=== PATIENT | female | born 1965 | race American Indian/Alaskan Native ===

== ENCOUNTER 2016-09-03 08:04 | Day surgery (SDC) | payer MEDICAID ==
--- NOTE | 2016-09-03 09:52 | Anesthesia Consultation ---
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
--- NOTE | 2016-09-03 09:53 | Anesthesia Day of Surgery ---
Anesthesia Day of Surgery - Day of Surgery Patient Examined: Yes Patient H&P Reviewed: Yes Patient is NPO: Yes Beta Blockers: Yes (metoprolol 09/03/16)
[2016-09-03] MEDS ORDERED: ZOFRAN IV PRN ×2 (09:54→12:41)
[2016-09-03] MEDS ORDERED: PERCOCET 5/325 PO PRN (09:54)
[2016-09-03] MEDS ORDERED: PEPCID PO NR (10:00)
[2016-09-03] MEDS ORDERED: VERSED IV NR (10:00)
[2016-09-03] MEDS ORDERED: LACTATED RINGERS 1,000 ML IV SCH (10:00)
--- NOTE | 2016-09-03 10:08 | Discharge Summary ---
Short Stay Discharge Plan Activity: no restrictions Weight Bearing Status: Full Weight Bearing Diet: regular Wound: remove dressing (72hrs) Follow up with: ROBI BARTLETT JR, MD [Staff Physician] - 7 Days
--- NOTE | 2016-09-03 10:10 | Short Stay Summary ---
Short Stay Documentation Date of service: 09/03/16 - Allergies and Medications Current Medications: Allergies No Known Allergies Allergy (Unverified 08/28/16 14:32) Home Medications Medication Instructions Recorded Confirmed Last Taken Type Metoprolol [Lopressor] 25 mg PO QDAY 08/28/16 08/28/16 Unknown History Valsartan 40 mg PO QDAY 08/28/16 08/28/16 Unknown History amLODIPine [Norvasc] 10 mg PO DAILY 08/28/16 08/28/16 Unknown History Active Medications Famotidine (Pepcid) 20 mg PO PREOP NR Stop: 09/03/16 15:00 Hydromorphone HCl (Dilaudid) 0.5 mg IV Q10MIN PRN PRN Reason: Pain , Severe (7-10) Stop: 09/03/16 18:00 Lactated Ringer's (Lactated Ringers) 1,000 mls @ 100 mls/hr IV DIRECT XIAO Midazolam HCl (Versed) 2 mg IV PREOP NR Stop: 09/03/16 23:59 - Brief post op/procedure progress note Date of procedure: 09/03/16 Pre-op diagnosis: Ruptured Silicone Gel Implant Post-op diagnosis: same Procedure: Removal of Ruptured Silicone Gel Implant with Extruded Gel Anesthesia: GETA Surgeon: ROBI BARTLETT JR Estimated blood loss: minimal Specimen disposition: to lab Condition: stable - Disposition Condition at discharge: Good Disposition: DC-01 TO HOME OR SELFCARE Short Stay Discharge Plan Follow up with: ROBI BARTLETT JR, MD [Staff Physician] - 7 Days
[2016-09-03] MEDS ORDERED: XYLOCAINE MPF 2% ONE (10:28)
[2016-09-03] MEDS ORDERED: DIPRIVAN 10 MG/ML IV ONE (10:28)
[2016-09-03] MEDS ORDERED: DILAUDID ONE (10:28)
[2016-09-03] MEDS ORDERED: ANCEF/STERILE WATER 2 GM/20 ML IV NR (11:00)
[2016-09-03] MEDS ORDERED: NACL 0.9% IR ONE (11:02)
[2016-09-03] MEDS ORDERED: ANCEF ONE (11:08)
[2016-09-03] MEDS ORDERED: ZOFRAN ONE (11:22)
[2016-09-03] MEDS: DILAUDID IV PRN ×2 (11:55→12:10)
[2016-09-03] MEDS ORDERED: NORCO 5/325 PO PRN (12:45)
[2016-09-03 13:47] VITALS: BP 144/105
--- NOTE | 2016-09-03 15:58 | Post Anesthesia Evaluation ---
- Post Anesthesia Evaluation Patient Participated: Yes Airway Patent: Yes Stable Respiratory Function: Yes Nausea/Vomiting: No Temp > 96.8F: Yes Pain Manageable: Yes Adequeate Hydration: Yes Anesthesia Complications: No
--- NOTE | 2016-09-03 17:07 | Operative Report ---
Operative Report Operative Report: 09/03/16 Preoperative diagnosis: Ruptured left silicone gel implant Postoperative diagnosis: Same Procedure: Removal of left breast ruptured silicone gel implant with extruded material. Left breast capsulectomy Surgeon: Lester Goins M.D. Description of procedure: Patient was brought into the operating room and placed on table in supine position. Following administration of general anesthesia left breast was prepped with Betadine solution and draped in the usual sterile manner. Left transverse intermammary fold skin incision was incised with a scalpel and deepened through subcutaneous fat using the electrocautery. Capsule was incised and implant with extruded material was excised. The capsule was then circumferentially excised using the electrocautery and sent to pathology as a specimen. Hemostasis controlled using the electrocautery. 10 mm LYNDSEY drain was inserted and closure performed using interrupted and running subcuticular Monocryl sutures. Lester Goins M.D.
== END 2016-09-03 08:05 | disposition home or self-care (01) ==
LOC: OR 08:04
PROVIDERS: ATTEND Plastic Surgery
DX: T85.49XA Other mechanical complication of breast prosthesis and implant, initial encounter (principal); I10 Essential (primary) hypertension; M19.90 Unspecified osteoarthritis, unspecified site; Z86.73 Personal history of transient ischemic attack (TIA), and cerebral infarction without residual deficits; Z79.899 Other long term (current) drug therapy; Z98.890 Other specified postprocedural states; Y83.8 Other surgical procedures as the cause of abnormal reaction of the patient, or of later complication, without mention of misadventure at the time of the procedure; Z82.61 Family history of arthritis; Z82.5 Family history of asthma and other chronic lower respiratory diseases; Z80.3 Family history of malignant neoplasm of breast; Z83.3 Family history of diabetes mellitus
CPT/HCPCS: 19371; 81025; 88300; 88305; J0690; J1170; J2250; J2405; J2704; J7120; 88302